=== PATIENT | female | born 1940 | race Caucasian/White ===

== ENCOUNTER 2017-08-06 17:08 | Emergency (ER) | payer MEDICAID ==
[~2017-08-06] VITALS: Ht 152.4 cm; Wt 60.0 kg
[~2017-08-06 17:08] MED LIST: ACET-2178 PO
[2017-08-06 22:02] VITALS: BP 115/88
== END 2017-08-06 22:05 | disposition home or self-care (01) ==
LOC: ER 17:53
DX: L25.9 Unspecified contact dermatitis, unspecified cause (principal); M19.90 Unspecified osteoarthritis, unspecified site; Z90.49 Acquired absence of other specified parts of digestive tract
CPT/HCPCS: 99283